=== PATIENT | female | born 1995 | race Two or more races ===

== ENCOUNTER 2020-01-12 14:15 | Emergency (ER) | payer OTHER ==
[~2020-01-12] VITALS: Ht 175.3 cm; Wt 93.9 kg
[2020-01-12 14:28] VITALS: BP 112/70
--- NOTE | 2020-01-12 14:53 | NUR ---
Patient discharged to home in stable condition. Written and verbal after care instructions given. Patient verbalizes understanding of instruction.
== END 2020-01-12 14:53 | disposition home or self-care (01) ==
LOC: ER 14:17
DX: H92.01 Otalgia, right ear (principal)

== ENCOUNTER 2025-02-24 12:30 | Emergency (ER) | payer OTHER ==
[~2025-02-24] VITALS: Ht 175.3 cm; Wt 113.4 kg
[2025-02-24 13:55] VITALS: BP 136/76; TEMP 98.1; O2SAT 99
== END 2025-02-24 13:56 | disposition home or self-care (01) ==
LOC: ER 12:37 → EDSEX 12:37 → ER 13:56
DX: R07.89 Other chest pain (principal); Z88.0 Allergy status to penicillin
CPT/HCPCS: 71100-TC